=== PATIENT | male | born 1985 | race Caucasian/White ===

== ENCOUNTER 2016-04-13 13:30 | Emergency (ER) | payer BC, OTHER ==
[2016-04-13 14:30] VITALS: BP 139/73
--- NOTE | 2016-04-13 16:19 | UC ---
Upper Extremity HPI - HPI Summary HPI Summary: complaint of left arm pain that started on saturday woke up bruising on arm onlty painfulwhen he squezzes his arm or when he pushes on his arm not warm to touch area has turned slightly darker and brusied since it started denies fever hasn't had to take any medication for pain - History of Current Complaint Chief Complaint: UCSkin Stated Complaint: LEFT ARM COMPLAINT Time Seen by Provider: 04/13/16 16:10 Hx Obtained From: Patient - Allergies/Home Medications Allergies/Adverse Reactions: Allergies Allergy/AdvReac Type Severity Reaction Status Date / Time No Known Allergies Allergy Verified 04/13/16 14:30 PMH/Surg Hx/FS Hx/Imm Hx Previously Healthy: Yes Cardiovascular History Of: Denies: Cardiac Disorders, Hypertension - Surgical History Surgical History: None - Family History Known Family History: Negative: Cardiac Disease, Hypertension, Diabetes - Social History Occupation: Employed Full-time Lives: With Family Alcohol Use: Rare Substance Use Type: Marijuana Substance Use Comment - Amount & Last Used: 11/08/13 Smoking Status (MU): Current Every Day Smoker Review of Systems Constitutional: Negative Skin: Bruising Eyes: Negative ENT: Negative Respiratory: Negative Cardiovascular: Negative Gastrointestinal: Negative Genitourinary: Negative Motor: Negative Neurovascular: Negative Musculoskeletal: Negative Neurological: Negative Psychological: Negative All Other Systems Reviewed And Are Negative: Yes Physical Exam Triage Information Reviewed: Yes Appearance: No Pain Distress, Well-Nourished Vital Signs: Initial Vital Signs Temp 98.3 F 04/13/16 14:25 Pulse 62 04/13/16 14:25 Resp 16 04/13/16 14:25 BP 139/73 04/13/16 14:25 Pulse Ox 99 04/13/16 14:25 Vital Signs Reviewed: Yes Eyes: Positive: Conjunctiva Clear ENT: Positive: Pharynx normal, TMs normal Neck: Positive: No Lymphadenopathy Respiratory: Positive: Lungs clear, Normal breath sounds, No respiratory distress Cardiovascular: Positive: RRR, No Murmur, Pulses Normal Abdomen Description: Positive: Nontender, Soft Bowel Sounds: Positive: Present Musculoskeletal: Positive: No Edema Neurological: Positive: Alert Psychological Exam: Normal Psychological: Positive: Normal Response To Family Skin Exam: Other - LUE- forearm with ecchymotic area - not warmer than surrounding sking no edema Upper Extremity Course/Dx - Differential Dx/Diagnosis Differential Diagnosis/HQI/PQRI: Contusion, Hematoma Provider Diagnoses: resolving hematoma Discharge - Discharge Plan Condition: Stable Disposition: HOME Patient Education Materials: Hematoma (ED) Referrals: No Primary Care Phys,NOPCP [Primary Care Provider] - [facility] [place] [place] [facility] [Outside] Additional Instructions: Please review your discharge instructions. If your symptoms do not improve please call your primary care provider or return to urgent care.
== END 2016-04-13 16:27 | disposition home or self-care (01) ==
LOC: UCCORT 13:30
DX: S50.12XD Contusion of left forearm, subsequent encounter (principal); S40.022D Contusion of left upper arm, subsequent encounter; X58.XXXD Exposure to other specified factors, subsequent encounter; F17.200 Nicotine dependence, unspecified, uncomplicated
CPT/HCPCS: 99211; G0463

== ENCOUNTER 2018-08-12 08:52 | Emergency (ER) | payer BC, OTHER ==
--- OUTSIDE RECORDS SUMMARY | 2018-08-12 09:02 | XMS REPORT | Continuity of Care Document ---
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 Payers Date Identification Numbers Payment Provider Subscriber Policy Number: [id number] [facility] Ppo Alec Whitmore PayID: [id number] [address] [address] [place] [address] Advance Directives Description No Information Available Problems Description No Information Family History Date Family Member(s) Observation Comments Father Arthritis disabled due to back pain Mother Cancer, Thyroid Paternal Grandfather due to Cancer, Lung () Paternal Grandfather COPD Paternal Grandfather due to Cancer, Skin () Maternal Grandmother Alzheimer's Disease Social History Type Date Description Comments Sex Unknown Education Highest level completed, 12th grade Marital Status Lives With Alone 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 [employer] Hand Dominance RIGHT-handed Abuse No history of abuse Hobbies Hunting Hobbies computer games ETOH Use Occasionally consumes alcohol Tobacco Use Start: Unknown Patient has never smoked Recreational Drug Use Former Drug User mj in high school Smoking Status Reviewed: 07/18/18 Patient has never smoked Allergies, Adverse Reactions, Alerts Description No Known Drug Allergies Medications Active Medications SIG Qnty Indications Ordering Provider Date One Daily Complete For 1 tab PO daily Unknown Men Tablets History Medications No Active Medications Unknown 07/13/2016 - 07/18/2018 Immunizations CPT Code Status Date Vaccine Reaction Lot # [id number] Given 07/18/2018 Tdap (Adacel) Ages 7 And Im inj completed, Pt [id number] Above Only tolerated well [id number] Refused 07/18/2018 Flu Vaccine NOS Pt says he did not get a flu shot this year. 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 07/18/18 BMI (Body Mass Index) 25.1 kg/m2 07/16/2017 8:15am Weight 222.00 lb Heart Rate 72 /min BP Systolic 124 mmHg BP Diastolic 76 mmHg Respiratory Rate 18 /min Height 74 inches 6'2" BMI (Body Mass Index) 28.5 kg/m2 07/13/2016 10:43am Weight 222.00 lb Heart Rate 76 /min BP Systolic 122 mmHg BP Diastolic 80 mmHg Respiratory Rate 18 /min Height 72.75 inches 6'0.75" 07/13/16 BMI (Body Mass Index) 29.5 kg/m2 Results Test Date Facility Test Result H/L Range Note Laboratory test finding 07/18/2018 [facility] Prolactin <pending> TSH <pending> Laboratory test finding 07/18/2018 [facility] Trep Igg/Igm-RL <pending> \\ Lipid 07/13/2016 [facility] Cholesterol 165 mg/dL 50-199 1 Triglycerides 72 mg/dL 30-200 HDL 43 mg/dL 29-71 2 Chol/ HDL Ratio 3.9 ratio Low 4.0-6.7 VLDL 14 mg/dL 2-29 LDL (Calc) 108 mg/dL High 20-99 3 CBC With Auto Diff 07/13/2016 [facility] WBC 6.1 K/uL 4.1-11.0 RBC 5.23 M/uL 4.60-6.10 Hemoglobin 15.6 gm/dL 13.5-18.0 Hematocrit 45.8 % 41.0-53.0 MCV 87.7 fL 80.0-97.0 MCH 29.8 pg 27.0-32.0 MCHC 34.0 g/dL 32.0-36.0 RDW 12.5 % 11.5-14.5 PLT Count 221 K/ul 140-400 Neutrophil 47.9 % 35.0-75.0 Lymphocyte 38.2 % 16.0-52.0 Monocyte 10.4 % High 2.0-10.0 Eosinophil 2.5 % 0.0-5.0 Basophil 1.0 % 0.0-4.0 Abs Neutrophils 2.9 K/uL 2.1-8.0 Abs Lymphocytes 2.3 K/uL 0.8-5.5 Abs Monocytes 0.6 K/uL 0.1-1.0 Abs Eosinophils 0.2 K/uL 0.0-0.5 Abs Basophils 0.1 K/uL 0.0-0.3 Comprehensive Metabolic (CMP) 07/13/2016 [facility] Sodium 140 mmol/L 135- 146 4 Potassium 4.4 mmol/L 3.5-5.2 Chloride# 104 mmol/L 97-110 5 Carbon Dioxide 31 mmol/L 24-34 Glucose 78 mg/dL 70-105 BUN 15 mg/dL 6-26 Creatinine 1.1 mg/dL 0.5-1.4 Calcium 9.7 mg/dL 8.5-10.2 Total Protein 7.3 g/dL 6.0-8.0 Albumin 4.8 g/dL 3.6-4.9 Globulin 2.5 g/dL 2.0-3.5 A/G Ratio 1.9 Ratio 1.0-2.2 Total Bilirubin 0.6 mg/dL 0.1-1.3 Alkaline Phosphatase 77 U/L 24-140 Alt 28 U/L 3-42 Ast 20 U/L 8-42 Bianca Egfr >60 >60 6 Non Bianca Egfr >60 >60 7 Anion Gap 9 mmol/L 7-16 8 1 soon 2 Per NCEP ATP III Guidelines: Results lower than 40 mg/dL are suggestive of increased risk for coronary artery disease. Results > or=to 60 mg/dL are considered a negative risk factor. 3 Per NCEP ATP III Guidelines: Normal Population <130 Patients with medical conditions: CHD/DM Optimal: <100 Borderline high: 130-159 High: 160-189 Very high: >189 4 Updated reference range on new analyzer 5 Updated reference range on new analyzer 6 Concerning GFR Guidelines for Americans: Normal function or mild renal disease, if clinically at risk: >/=60 mL/min Moderately decreased: 30-59 Severely decreased: 15-29 Renal failure: <15 7 Concerning GFR Guidelines: Normal function or mild renal disease, if clinically at risk: >/=60 mL/min Moderately decreased: 30-59 Severely decreased: 15-29 Renal failure: <15 Glomerular Filtration Rate (GFR) is estimated based on the MDRD equation, which assumes a steady state for creatinine as recommended by the National Kidney Disease Education Program in conjunction with the National Institutes of Health and the National Kidney Foundation. Clinical conditions in which it may be necessary to measure GFR by using clearance methods include extremes of age and body size, severe malnutrition or obesity, diseases of skeletal muscle, paraplegia or quadriplegia, vegetarian diet, rapidly changing kidney function, and calculation of the dose of potentially toxic drugs that are excreted by the kidneys. 8 Updated reference range on new analyzer Procedures Date Code Description Status 07/16/2017 89400 Brief Emotional/Behav Assessment W/ Scoring Doc Per Completed Standard Inst Encounters Type Date Location Provider Dx Diagnosis Office Visit 07/16/2017 [facility] Denise Villafuerte MD Z68.28 Body mass index (BMI ) 8:15a 28.0-28.9, adult Z13.89 Encounter for screening for other disorder Z00.00 Encntr for general adult medical exam w/o abnormal findings Office Visit 07/13/2016 10:30a [facility] Denise Villafuerte MD Z00.00 Encntr for general adult medical exam w/o abnormal findings D48.5 Neoplasm of uncertain behavior of skin Plan of Treatment Future Appointment(s):07/22/2019 8:30 am - Denise Villafuerte MD at [facility]07/18/2018 - Denise Villafuerte MDZ00.00 Encntr for general adult medical exam w/o abnormal findingsComments:annual well visit done. updated list of consulting doctors. updated medication list We willbe doing labs on the patient.Follow up:Follow up in 1-2 year for annual physical.Z13.31 Encounter for screening for depressionComments:screening for depression is negative - PHQ2=0Z11.3 Encntr screen for infections w sexl mode of transmissComments:he would like to be tested for STDZ11.4 Encounter for screening for human immunodeficiency virusComments:Patient would like to be tested for HIV - discussed that this test is only valid for exposures longer than 3 months ago so would recommend repeating the test in 6 months if there is a potential for a more recent exposure.N52.9 Male erectile dysfunction, unspecifiedComments:Erectile dysfunction - most likely due to stress of divorce 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 Check BMP, TSH and prolactin, and testosterone level.Z68.25 Body mass index (BMI) 25.0-25.9, adultComments:you are in your normal body weight range. the goal BMI is between 18.5 and 25 for people under age65.
[2018-08-12 09:09] VITALS: BP 132/80
[2018-08-12] MEDS ORDERED: Lidocaine 2% W/EPI 1:100,000* 20 ML MDV INJ ONE (09:28)
--- NOTE | 2018-08-12 10:29 | UC ---
Rectal Pain HPI - HPI Summary HPI Summary: rectal pain x 1 day pain is 7 out of 10 , sharp worse with sitting, walking, BM nothing make it better. + rectal bleeding hx of thrombosed hemorrhoids no fever, no chills, no diarrhea/ no constipation - History Of Current Complaint Chief Complaint: UCGI Stated Complaint: PERSONAL Time Seen by Provider: 08/12/18 09:24 Hx Obtained From: Patient Onset/Duration: Gradual Onset, Lasting Days - 1, Still Present Timing: Constant Severity Initially: Moderate Severity Currently: Moderate Pain Intensity: 5 Pain Scale Used: 0-10 Numeric Location Of Pain: Anal Character: Sharp, Burning, Itching Aggravating Factor(s): Bowel Movement, Sitting, Walking Alleviating Factor(s): Nothing Associated Signs And Symptoms: Positive: Rectal Bleeding, Blood-Streaked Stool. Negative: Black Tarry Stool, Bright Red Blood w/Stool, Blood W/O Stool, External Hemorrhoid, Diarrhea, Constipation, Discharge Related History: Similar Episode/Dx As - hemorrhoids - Allergies/Home Medications Allergies/Adverse Reactions: Allergies Allergy/AdvReac Type Severity Reaction Status Date / Time No Known Allergies Allergy Verified 08/12/18 09:03 PMH/Surg Hx/FS Hx/Imm Hx - Additional Past Medical History Additional PMH: hemorrhoids - Surgical History Surgical History: None - Family History Known Family History: Negative: Cardiac Disease, Hypertension, Diabetes - Social History Alcohol Use: Occasionally Substance Use Type: None Substance Use Comment - Amount & Last Used: 11/08/13 Smoking Status (MU): Current Every Day Smoker Review of Systems All Other Systems Reviewed And Are Negative: Yes Constitutional: Positive: Negative Skin: Positive: Negative Eyes: Positive: Negative ENT: Positive: Negative Respiratory: Positive: Negative Cardiovascular: Positive: Negative Genitourinary: Positive: Negative Motor: Positive: Negative Is Patient Immunocompromised?: No Physical Exam Triage Information Reviewed: Yes Appearance: Well-Appearing, No Pain Distress, Well-Nourished Vital Signs: Initial Vital Signs Temp 98.4 F 08/12/18 09:04 Pulse 62 08/12/18 09:04 Resp 18 08/12/18 09:04 BP 132/80 08/12/18 09:04 Pulse Ox 99 08/12/18 09:04 Vital Signs Reviewed: Yes Eye Exam: Normal Eyes: Positive: Conjunctiva Clear ENT: Positive: Normal ENT inspection, Hearing grossly normal, Pharynx normal Neck: Positive: Supple, Nontender, No Lymphadenopathy Respiratory: Positive: Chest non-tender, Lungs clear, Normal breath sounds Cardiovascular: Positive: RRR, No Murmur, Pulses Normal UC Physical Exam Vital Signs On Initial Exam: Initial Vitals Temp Pulse Resp BP Pulse Ox 98.4 F 62 18 132/80 99 08/12/18 09:04 08/12/18 09:04 08/12/18 09:04 08/12/18 09:04 08/12/18 09:04 - Rectal Exam Rectal Exam: Hemorrhoids - thrombossed, Tenderness Procedures - Incision and Drainage Buttocks Site: thrombosed hemorrhoid Anesthesia: Lidocaine - 3 cc 2% lidocaine with epi Instrument(s): Scalpel, Needle Rectal Pain Course/Dx - Differential Dx/Diagnosis Provider Diagnosis: Hemorrhoids, external, thrombosed Discharge - Sign-Out/Discharge Documenting (check all that apply): Patient Departure All imaging exams completed and their final reports reviewed: No Studies - Discharge Plan Condition: Stable Disposition: HOME Patient Education Materials: Thrombosed Hemorrhoid (ED) Referrals: Denise Villafuerte MD [Primary Care Provider] - 5 Days - Billing Disposition and Condition Condition: STABLE Disposition: Home
== END 2018-08-12 09:46 | disposition home or self-care (01) ==
LOC: UCCORT 08:52
DX: K64.5 Perianal venous thrombosis (principal); F17.210 Nicotine dependence, cigarettes, uncomplicated
CPT/HCPCS: 46083; 99211; G0463

== ENCOUNTER 2018-10-13 08:36 | Emergency (ER) | payer BC ==
[2018-10-13 08:54] VITALS: BP 142/83
--- NOTE | 2018-10-13 09:22 | ED ---
GI/ HPI - HPI Summary HPI Summary: 33 yr old with anal pain for two days. he woke up Saturday morning with a swollen hemorrhoid. No blood, no fever, no chills. He has had this issue before. he denies abdominal pain. - History of Current Complaint Chief Complaint: UCGU Time Seen by Provider: 10/13/18 09:02 Stated Complaint: PERSONAL Pain Intensity: 6 - Allergy/Home Medications Allergies/Adverse Reactions: Allergies Allergy/AdvReac Type Severity Reaction Status Date / Time No Known Allergies Allergy Verified 10/13/18 08:48 Home Medications: Home Medications Sildenafil Citrate [Viagra] 100 mg PO SEE INSTRUCTIONS PRN 10/13/18 [History Confirmed 10/13/18] PMH/Surg Hx/FS Hx/Imm Hx Cardiovascular History: Denies: Hx Hypertension - Surgical History Surgery Procedure, Year, and Place: umbilical tag Infectious Disease History: No Infectious Disease History: Denies: Traveled Outside the [place] in Last 30 Days - Family History Known Family History: Positive: None Negative: Cardiac Disease, Hypertension, Diabetes - Social History Occupation: Employed Full-time Alcohol Use: Occasionally Substance Use Type: Reports: None Substance Use Comment - Amount & Last Used: 11/08/13 Smoking Status (MU): Current Some Day Smoker Review of Systems Constitutional: Negative Positive: Other - anal pain, hemorrhoid All Other Systems Reviewed And Are Negative: Yes Physical Exam Triage Information Reviewed: Yes Vital Signs On Initial Exam: Initial Vitals Temp Pulse Resp BP Pulse Ox 97.8 F 69 16 142/83 99 10/13/18 08:51 10/13/18 08:51 10/13/18 08:51 10/13/18 08:51 10/13/18 08:51 Vital Signs Reviewed: Yes Appearance: Positive: Well-Appearing, No Pain Distress Skin: Positive: Warm, Skin Color Reflects Adequate Perfusion Head/Face: Positive: Normal Head/Face Inspection Eyes: Positive: EOMI ENT: Positive: Normal ENT inspection Neck: Positive: Nontender Respiratory/Lung Sounds: Positive: Clear to Auscultation, Breath Sounds Present Cardiovascular: Positive: RRR. Negative: Murmur Abdomen Description: Positive: Nontender, Other: - rectal with a small thombosed hemorrhoid without any bleeding. Musculoskeletal: Positive: Strength/ROM Intact Neurological: Positive: Sensory/Motor Intact, Alert, Oriented to Person Place, Time, CN Intact II-III, Normal Gait, Speech Normal Psychiatric: Positive: Normal - Cristian Coma Scale Best Eye Response: 4 - Spontaneous Best Motor Response: 6 - Obeys Commands Best Verbal Response: 5 - Oriented Coma Scale Total: 15 Diagnostics - Vital Signs Vital Signs Temp Pulse Resp BP Pulse Ox 10/13/18 08:51 97.8 F 69 16 142/83 99 - Laboratory Lab Statement: Any lab studies that have been ordered have been reviewed, and results considered in the medical decision making process. GIGU Course/Dx - Course Course Of Treatment: 33 yr old with thrombosed hemorrhoid. Anusol HC suppositories. FU with Gen Surgery. - Diagnoses Provider Diagnoses: Thrombosed external hemorrhoid, Hypertension Discharge - Sign-Out/Discharge Documenting (check all that apply): Patient Departure All imaging exams completed and their final reports reviewed: No Studies - Discharge Plan Condition: Good Disposition: HOME Prescriptions: Hydrocortisone SUPP* [Anusol HC Supp*] 25 mg CA BID #30 supp Patient Education Materials: Hemorrhoids (ED), Hypertension (ED) Referrals: Jak Malin [Medical Doctor] - 2 Days Denise Villafuerte MD [Primary Care Provider] - 2 Days - Billing Disposition and Condition Condition: GOOD Disposition: Home
== END 2018-10-13 09:23 | disposition home or self-care (01) ==
LOC: UCCORT 08:36
DX: K64.5 Perianal venous thrombosis (principal); I10 Essential (primary) hypertension; F17.200 Nicotine dependence, unspecified, uncomplicated
CPT/HCPCS: 99212; G0463